=== PATIENT | female | born 1965 | race Two or more races ===

== ENCOUNTER 2020-06-09 05:31 | Emergency (ER) | payer SELFPAY ==
[~2020-06-09] VITALS: Ht 154.9 cm; Wt 97.1 kg
[2020-06-09 06:49] LABS: BILIRUBIN,URINE NEGATIVE (NEG); CLARITY,URINE CLEAR; COLOR,URINE YELLOW; NITRITE,URINE NEGATIVE (NEG); PH,URINE 5.5 (<5.0-8.0); PROTEIN,URINE NEGATIVE (NEG-TRACE); UROBILINOGEN,URINE 0.2 mg/dL (0.2 mg/dL)
[2020-06-09 06:56] LABS: BACTERIA,URINE FEW /HPF (0-FEW); WBC,URINE OCC /HPF (0-4)
[2020-06-09 06:59] LABS: BASO # 0.1 x10^3/uL (0.0-0.2); BASO % 1 % (0-3); EOS # 0.1 x10^3/uL (0.0-0.7); EOS % 1 % (0-3); HEMOGLOBIN 15.1 g/dL (12.0-15.5); LYMPH # 1.2 x10^3/uL (1.0-4.8); LYMPH % 13 % (24-48); MEAN CORPUSCULAR HEMOGLOBIN 31 pg (25-35); MEAN CORPUSCULAR HGB CONC 34 g/dL (31-37); MEAN CORPUSCULAR VOLUME 91 fL (79-100); MONO # 0.8 x10^3/uL (0.0-1.1); MONO % 8 % (0-9); NEUT # 7.9 x10^3/uL (1.8-7.7); NEUT % 79 % (31-73); PLATELET COUNT 166 x10^3/uL (140-400); RED BLOOD COUNT 4.82 x10^6/uL (3.50-5.40)
[2020-06-09] MEDS ORDERED: ONDANSETRON PF 4 MG/2 ML VIAL. IVP ONE ×2 (07:00→11:00)
[2020-06-09] MEDS ORDERED: MORPHINE SULFATE 10 MG/ML VIAL. IV ONE (07:00)
[2020-06-09 07:20] LABS: CALCIUM 8.5 mg/dL (8.5-10.1); GFR 57.4; POTASSIUM 3.9 mmol/L (3.5-5.1)
[2020-06-09 07:26] LABS: ALBUMIN 3.4 g/dL (3.4-5.0); ALBUMIN/GLOBULIN RATIO 0.9 (1.0-1.7); TOTAL BILIRUBIN 0.6 mg/dL (0.2-1.0); TOTAL PROTEIN 7.1 g/dL (6.4-8.2)
[2020-06-09] MEDS ORDERED: IOHEXOL 240 MG/ML 50ML VIAL. PO ONE (08:15)
[2020-06-09] MEDS ORDERED: CONTRAST GIVEN. MC PRN (08:15)
[2020-06-09] MEDS ORDERED: IOHEXOL 300 MG/ML 100ML VIAL. IV ONE (08:15)
--- NOTE | 2020-06-09 09:18 | RAD ---
EXAM: CT ABDOMEN/PELVIS WITH CONTRAST. HISTORY: Abdominal pain. Nausea/vomiting. Cervical cancer. TECHNIQUE: Computed tomography of the abdomen and pelvis was performed after the intravenous administration of iodinated contrast. One or more of the following individualized dose reduction techniques were utilized for this examination: 1. Automated exposure control. 2. Adjustment of the mA and/or kV according to patient size. 3. Use of iterative reconstruction technique. COMPARISON: 12/27/2012. FINDINGS: Lung windows through the visualized portions of the bases reveal mild atelectasis. Bone windows reveal no suspicious lesions. A 5 mm calculus in the right distal ureter is just distal to the crossing point of the iliac vessels. There is moderate right hydronephrosis. Delayed perfusion of the right kidney is consistent with component of acute obstruction. Bilateral renal calculi measure up to 6 mm in the left lower pole. Left colonic diverticulosis is mild. The appendix is not inflamed. There is no small bowel obstruction. The gallbladder is surgically absent. The liver, pancreas, adrenal glands and spleen are unremarkable. There are no pathologically enlarged lymph nodes. There is a surgical clip in the cul-de-sac. IMPRESSION: 1. 5 mm right distal ureteral calculus with moderate right hydronephrosis. 2. Additional bilateral renal calculi measure up to 6 mm on the left. Electronically signed by: Giulia Salazar MD (06/09/2020 9:15 AM) [facility]
--- NOTE | 2020-06-09 09:28 | ED.ADGEN ---
Past Medical History Past Medical History: Cancer Additional Past Medical Histor: CERVICAL CANCER 2012 Past Surgical History: Cancer Surgery Smoking Status: Never Smoker Alcohol Use: None General Adult EDM: Chief Complaint: ABDOMINAL PAIN HPI: HPI: Patient is a 54-year-old female who presents to the emergency room complaining of right-sided lower abdominal pain that radiates into her right flank. This started at 3:00 yesterday and has progressively gotten worse over time. She has tried to take ibuprofen and Tylenol without any relief. She has had some nausea and vomiting. Denies any diarrhea, constipation, fevers, chills, sweats, anorexia. She has not had any cough or shortness of breath. She has never had anything like this previously. She has not noticed any dysuria or hematuria. Review of Systems: Review of Systems: Complete ROS is negative unless otherwise documented in HPI Current Medications: Current Medications Medications (Trade) Dose Ordered Sig/Damian Start Time Stop Time Status Last Admin Dose Admin Info (CONTRAST GIVEN -- Rx MONITORING) 1 each PRN DAILY PRN 06/09/20 08:15 06/11/20 08:14 Iohexol (Omnipaque 240 Mg/ml) 30 ml 1X ONCE 06/09/20 08:15 06/09/20 08:16 DC 06/09/20 08:35 30 ML Iohexol (Omnipaque 300 Mg/ml) 60 ml 1X ONCE 06/09/20 08:15 06/09/20 08:16 DC 06/09/20 08:34 60 ML Morphine Sulfate (Morphine Sulfate) 5 mg 1X ONCE 06/09/20 07:00 06/09/20 07:01 DC 06/09/20 06:59 5 MG Ondansetron HCl (Zofran) 4 mg 1X ONCE 06/09/20 11:00 06/09/20 11:01 DC 06/09/20 10:55 4 MG Oxycodone/ Acetaminophen (Percocet 5/325) 2 tab 1X ONCE 06/09/20 10:45 06/09/20 10:46 DC 06/09/20 10:51 2 TAB Sodium Chloride 1,000 ml @ 1,000 mls/hr 1X ONCE 06/09/20 09:30 06/09/20 10:29 DC 06/09/20 09:48 1,000 MLS/HR Allergies: Allergies: Allergies Coded Allergies Type Severity Reaction Last Updated Verified No Known Drug Allergies 06/09/20 No Physical Exam: PE: General: Awake, alert, NAD. Well Nourished, well hydrated. Cooperative HEENT: Atraumatic, EOMI, PERRL, airway patent, moist oral mucosa Neck: Supple, trachea midline Respiratory: CTA bilaterally, normal effort, no wheezing/crackles CV: RRR, no murmur, cap refill <2 GI: Soft, nondistended, right lower quadrant and CVA tenderness, no masses MSK: No obvious deformities Skin: Warm, dry, intact Neuro: A&O x3, speech NL, sensory and motor grossly intact, no focal deficits Psych: Normal affect, normal mood, not suicidal or homicidal Current Patient Data: Labs: Laboratory Tests Test 06/09/20 05:55 06/09/20 06:50 06/09/20 06:58 Urine Collection Type Void Urine Color Yellow Urine Clarity Clear Urine pH 5.5 (<5.0-8.0) Urine Specific Howe >=1.030 (1.000-1.030) Urine Protein Negative mg/dL (NEG-TRACE) Urine Glucose (UA) Negative mg/dL (NEG) Urine Ketones (Stick) Negative mg/dL (NEG) Urine Blood Moderate (NEG) Urine Nitrite Negative (NEG) Urine Bilirubin Negative (NEG) Urine Urobilinogen Dipstick 0.2 mg/dL (0.2 mg/dL) Urine Leukocyte Esterase Negative (NEG) Urine RBC 6-10 /HPF (0-2) Urine WBC Occ /HPF (0-4) Urine Squamous Epithelial Cells Mod /LPF Urine Bacteria Few /HPF (0-FEW) Urine Mucus Mod /LPF White Blood Count 10.0 x10^3/uL (4.0-11.0) Red Blood Count 4.82 x10^6/uL (3.50-5.40) Hemoglobin 15.1 g/dL (12.0-15.5) Hematocrit 44.0 % (36.0-47.0) Mean Corpuscular Volume 91 fL (79-100) Mean Corpuscular Hemoglobin 31 pg (25-35) Mean Corpuscular Hemoglobin Concent 34 g/dL (31-37) Red Cell Distribution Width 14.0 % (11.5-14.5) Platelet Count 166 x10^3/uL (140-400) Neutrophils (%) (Auto) 79 % (31-73) H Lymphocytes (%) (Auto) 13 % (24-48) L Monocytes (%) (Auto) 8 % (0-9) Eosinophils (%) (Auto) 1 % (0-3) Basophils (%) (Auto) 1 % (0-3) Neutrophils # (Auto) 7.9 x10^3/uL (1.8-7.7) H Lymphocytes # (Auto) 1.2 x10^3/uL (1.0-4.8) Monocytes # (Auto) 0.8 x10^3/uL (0.0-1.1) Eosinophils # (Auto) 0.1 x10^3/uL (0.0-0.7) Basophils # (Auto) 0.1 x10^3/uL (0.0-0.2) Sodium Level 137 mmol/L (136-145) Potassium Level 3.9 mmol/L (3.5-5.1) Chloride Level 104 mmol/L (98-107) Carbon Dioxide Level 23 mmol/L (21-32) Anion Gap 10 (6-14) Blood Urea Nitrogen 17 mg/dL (7-20) Creatinine 1.0 mg/dL (0.6-1.0) Estimated GFR (Cockcroft-Gault) 57.4 BUN/Creatinine Ratio 17 (6-20) Glucose Level 108 mg/dL (70-99) H Calcium Level 8.5 mg/dL (8.5-10.1) Total Bilirubin 0.6 mg/dL (0.2-1.0) Aspartate Amino Transferase (AST) 28 U/L (15-37) Alanine Aminotransferase (ALT) 39 U/L (14-59) Alkaline Phosphatase 89 U/L (46-116) Total Protein 7.1 g/dL (6.4-8.2) Albumin 3.4 g/dL (3.4-5.0) Albumin/Globulin Ratio 0.9 (1.0-1.7) L Lipase 146 U/L (73-393) Laboratory Tests 06/09/20 06:50 Laboratory Tests 06/09/20 06:58 Vital Signs: Vital Signs Date Time Temp Pulse Resp B/P (MAP) Pulse Ox O2 Delivery O2 Flow Rate FiO2 06/09/20 10:51 16 99 Room Air 06/09/20 06:15 98.7 59 158/70 (99) 98.7 EKG: EKG: [] Heart Score: Risk Factors: Risk Factors: DM, Current or recent (<one month) smoker, HTN, HLP, family history of CAD, obesity. Risk Scores: Score 0 - 3: 2.5% MACE over next 6 weeks - Discharge Home Score 4 - 6: 20.3% MACE over next 6 weeks - Admit for Clinical Observation Score 7 - 10: 72.7% MACE over next 6 weeks - Early Invasive Strategies Radiology/Procedures: Radiology/Procedures: [] Course & Med Decision Making: Course & Med Decision Making Pertinent Labs and Imaging studies reviewed. (See chart for details) Patient is a 54 year old who presents to the Emergency Room complaining of right lower quadrant and right flank pain. On exam, patient appears uncomfortable and has tenderness. Patient's presentation is concerning for a possible kidney stone. Patient was given morphine for pain relief. CBC, BMP, UA were ordered to evaluate for kidney function and infection. CT abdomen and pelvis without contrast was ordered to evaluate for a kidney stone. CT shows 5 mm kidney stone. At this time, patient does not have significant infection, signs of sepsis, ASHER, or uncontrolled pain that requires admission. Patient will be treated symptomatically and referred to urology. Patient's test results and vitals whil e in the ED were fully reviewed and discussed with the patient. Patient is stable and at this time does not need admission to the hospital. We have discussed strict return precautions and the importance of following up with their Primary Care Physician. Patient stated understanding and was given an opportunity to ask any questions. Patient is in agreement with plan. Qasim Disclaimer: Qasim Disclaimer: This electronic medical record was generated, in whole or in part, using a voice recognition dictation system. Departure Departure Impression: Primary Impression: Kidney stone Disposition: 01 DC HOME SELF CARE/HOMELESS Condition: STABLE Referrals: NO PCP (PCP) Patient Instructions: Kidney Stones Scripts Ketorolac Tromethamine (KETOROLAC TROMETHAMINE) 10 Mg Tablet 1 TAB PO PRN Q6HRS, #20 TAB Prov: SUSANNA KIM MD 06/09/20 Oxycodone/Apap 5-325 (PERCOCET 5-325 MG TABLET ) 1 Each Tablet 1 TAB PO PRN Q6HRS PRN for PAIN, #12 TAB 0 Refills Prov: SUSANNA KIM MD 06/09/20 SUSANNA KIM MD Jun 09, 2020 09:28
[2020-06-09] MEDS ORDERED: IV NORMAL SALINE 1000ML BAG 1,000 ML IV ONE (09:30)
[2020-06-09] MEDS ORDERED: oxyCODONE/APAP 5/325 1 TAB TABLET PO ONE (10:45)
[2020-06-09 12:42] VITALS: BP 165/75
[2020-06-09] MEDS ORDERED: OXYC1TAB15 PO (12:53)
[2020-06-09] MEDS ORDERED: KETO10TA PO (12:53)
[2020-06-09] MEDS ORDERED: ONDA4TAB7 PO (13:01)
== END 2020-06-09 13:05 | disposition home or self-care (01) ==
LOC: ER 05:31
DX: N20.0 Calculus of kidney (principal); R11.2 Nausea with vomiting, unspecified
CPT/HCPCS: 36415; 74177; 80053; 81001; 83690; 85025; 96361; 96374; 96375; 96376; 99285; J2270; J2405; J7030; Q9966; Q9967